=== PATIENT | female | born 1990 ===

== ENCOUNTER 2018-01-26 09:30 | Outpatient (CLI) | payer OTHER ==
[~2018-01-26 09:30] MED LIST: MOTRIN800 MG PO
== END 2018-01-26 09:50 | disposition home or self-care (01) ==
LOC: NST 09:30
DX: O26.893 Other specified pregnancy related conditions, third trimester (principal); I10 Essential (primary) hypertension; Z34.83 Encounter for supervision of other normal pregnancy, third trimester

== ENCOUNTER 2018-01-28 07:56 | Outpatient (CLI) | payer OTHER | END 2018-01-28 15:00 | disposition home or self-care (01) | LOC: OBS/DEL 07:56 | DX: O26.893 Other specified pregnancy related conditions, third trimester (principal); R53.81 Other malaise; Z34.83 Encounter for supervision of other normal pregnancy, third trimester ==

== ENCOUNTER 2018-02-05 13:09 | Inpatient (IN) | payer OTHER ==
[~2018-02-05] VITALS: Ht 154.9 cm; Wt 73.9 kg
[2018-02-05] MEDS ORDERED: PRENATAL TABLE1 EAC1 PO (14:16)
[2018-02-05] MEDS ORDERED: ASA81 MG PO (14:17)
[2018-02-05] MEDS ORDERED: MAGNESIUM400 MG PO (14:18)
[2018-02-08] MEDS ORDERED: PRENATAL TABLE1 EAC1 PO (10:13)
[2018-02-08] MEDS ORDERED: IBUPROFEN400 MG PO (10:13)
[2018-02-08] MEDS ORDERED: DOCUSATE SODIU100 MG PO (10:13)
[2018-02-08] MEDS ORDERED: LOVENOX40 MG/0.4 SUBCUTANEO (10:13)
== END 2018-02-08 12:43 | DRG 766 ==
LOC: LDR 13:09 → OB/GYN 13:09 → LDR 13:16 → OB/GYN 19:03
PROVIDERS: Obstetrics & Gynecology
PROC: 0UL70ZZ Occlusion of Bilateral Fallopian Tubes, Open Approach (ICD-10-PCS; 2018-02-05)
PROC: 10907ZC Drainage of Amniotic Fluid, Therapeutic from Products of Conception, Via Natural or Artificial Opening (ICD-10-PCS; 2018-02-05)
PROC: 4A033R1 Measurement of Arterial Saturation, Peripheral, Percutaneous Approach (ICD-10-PCS; 2018-02-05)
PROC: 4A1HXCZ Monitoring of Products of Conception, Cardiac Rate, External Approach (ICD-10-PCS; 2018-02-05)
PROC: 10D00Z1 Extraction of Products of Conception, Low, Open Approach (ICD-10-PCS; principal; 2018-02-05 15:00)
DX: O34.211 Maternal care for low transverse scar from previous cesarean delivery (principal); Z3A.37 37 weeks gestation of pregnancy; Z37.0 Single live birth; Z30.2 Encounter for sterilization

== ENCOUNTER 2018-03-10 17:01 | Emergency (ER) | payer OTHER ==
[~2018-03-10] VITALS: Ht 30.5 cm; Wt 4.1 kg
== END 2018-03-10 19:49 | disposition home or self-care (01) ==
LOC: EMR PED 17:01
DX: J06.9 Acute upper respiratory infection, unspecified (principal)

== ENCOUNTER 2018-05-03 22:30 | Emergency (ER) | payer OTHER ==
[~2018-05-03] VITALS: Wt 5.4 kg
[~2018-05-03 22:30] MED LIST changes: +ASA81 MG PO; +DOCUSATE SODIU100 MG PO; +IBUPROFEN400 MG PO; +LOVENOX40 MG/0.4 SUBCUTANEO; +MAGNESIUM400 MG PO; +PRENATAL TABLE1 EAC1 PO
== END 2018-05-04 01:23 | disposition home or self-care (01) ==
LOC: EMR PED 22:30
DX: R09.89 Other specified symptoms and signs involving the circulatory and respiratory systems (principal)

== ENCOUNTER → 2018-07-12 | Emergency (ER) | payer OTHER ==
[~2018-07-12] VITALS: Ht 61 cm; Wt 7.3 kg
[~2018-07-12] MED LIST changes: +ALBUTEROL1.25 MG/3 IH; +BRONCOTRON PED60 ML PO; +BUDESONIDE0.25 MG/2 IH
== END | disposition home or self-care (01) ==
LOC: EMR PED 21:45
DX: J05.0 Acute obstructive laryngitis [croup] (principal); J06.9 Acute upper respiratory infection, unspecified; B97.4 Respiratory syncytial virus as the cause of diseases classified elsewhere

== ENCOUNTER 2018-07-28 06:03 | Emergency (ER) | payer OTHER ==
[~2018-07-28] VITALS: Wt 5.9 kg
[2018-07-28] MEDS ORDERED: HYPER-SAL4 M1 IH (10:26)
[2018-07-28] MEDS ORDERED: ALBUTEROL0.63 MG/3 IH (10:26)
[2018-07-28] MEDS ORDERED: BUDESONIDE0.25 MG/2 IH (10:26)
[2018-07-28] MEDS ORDERED: SUPRESS A DROPS30 ML PO (10:31)
== END 2018-07-28 10:40 | disposition home or self-care (01) ==
LOC: EMR PED 06:03
DX: J05.0 Acute obstructive laryngitis [croup] (principal); J98.8 Other specified respiratory disorders

== ENCOUNTER 2020-10-23 11:50 | Outpatient (CLI) | payer OTHER ==
[~2020-10-23 11:50] MED LIST changes: +ALBUTEROL0.63 MG/3 IH; +HYPER-SAL4 M1 IH; +SUPRESS A DROPS30 ML PO
== END 2020-10-23 11:55 | disposition home or self-care (01) ==
LOC: RAD 11:50
PROVIDERS: ATTEND Orthopaedic Surgery
DX: S67.197D Crushing injury of left little finger, subsequent encounter (principal); M79.645 Pain in left finger(s)